=== PATIENT | male | born 2000 | race Caucasian/White ===

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

== ENCOUNTER 2019-02-24 10:01 | Emergency (ER) | payer OTHER ==
--- NOTE | 2019-02-24 10:56 | ER Document Report ---
ED Medical Screen (RME) - General Chief Complaint: Abdominal Pain Stated Complaint: ABDOMINAL PAIN Time Seen by Provider: 02/24/19 10:52 Notes: Patient is otherwise healthy 18-year-old male presents to the emergency department with left upper abdominal pain for the last 3 days. Patient states when he applies pressure in his left upper abdomen the pain feels worse. Patient's denying any right lower quadrant pain, right upper quadrant pain. Patient's denying any nausea, vomiting, diarrhea, fever. GENERAL: Alert, interacts well. No acute distress. ABDOMEN: Soft, generalized left upper quadrant pain. Non-distended. Bowel sounds present in all 4 quadrants. No McBurney's point tenderness, no Sesay sign noted I have greeted and performed a rapid initial assessment of this patient. A comprehensive ED assessment and evaluation of the patient, analysis of test results and completion of the medical decision making process will be conducted by additional ED providers. TRAVEL OUTSIDE OF THE [place] 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, Hx Pneumonia - About 5 years ago Denies: Hx Bronchitis, Hx COPD Neurological Medical History: Denies: Hx Cerebrovascular Accident, Hx Seizures Renal/ Medical History: Denies: Hx Peritoneal Dialysis Musculoskeltal Medical History: Denies Hx Arthritis Psychiatric Medical History: Reports: Hx Attention Deficit Hyperactivity Disorder Traumatic Medical History: Reports: Hx Fractures - Right great toe - Immunizations Immunizations up to date: Yes Hx Diphtheria, Pertussis, Tetanus Vaccination: Yes Physical Exam - Vital signs Vitals: Temp Pulse Resp BP Pulse Ox 97.5 F 56 L 16 114/72 100 02/24/19 10:05 02/24/19 10:05 02/24/19 10:05 02/24/19 10:05 02/24/19 10:05 Course - Vital Signs Vital signs: Temp Pulse Resp BP Pulse Ox 97.5 F 56 L 16 114/72 100 02/24/19 10:05 02/24/19 10:05 02/24/19 10:05 02/24/19 10:05 02/24/19 10:05
[2019-02-24 11:53] LABS: ABSOLUTE EOSINOPHILS # (AUTO) 0.7 10^3/uL (0.0-0.6); ABSOLUTE LYMPHOCYTES (AUTO) 3.1 10^3/uL (0.5-4.7); ABSOLUTE MONOCYTES (AUTO) 0.9 10^3/uL (0.1-1.4); ABSOLUTE NEUT (AUTO) 4.2 10^3/uL (1.7-8.2); BASOPHILS % (AUTO) 0.4 % (0-2); EOSINOPHILS % (AUTO) 7.4 % (0-6); HEMOGLOBIN 14.7 g/dL (13.5-17.0); LYMPHOCYTES % (AUTO) 35.2 % (13-45); MEAN CORPUSCULAR HEMOGLOBIN 30.3 pg (27.0-33.4); MEAN CORPUSCULAR VOLUME 87 fl (80-97); MONOCYTES % (AUTO) 9.6 % (3-13); PLATELET COUNT 259 10^3/uL (150-450); RED BLOOD COUNT 4.85 10^6/uL (4.35-5.55); RED CELL DISTRIBUTION WIDTH 13.1 % (11.5-14.0); SEGMENTED NEUTROPHILS % (AUTO) 47.4 % (42-78); TOTAL CELLS COUNTED % (AUTO) 100 %; WHITE BLOOD COUNT 8.9 10^3/uL (4.0-10.5)
[2019-02-24 12:19] LABS: APPEARANCE,URINE CLEAR; BILIRUBIN,URINE NEGATIVE (NEGATIVE); COLOR,URINE STRAW; GLUCOSE, URINE NEGATIVE (NEGATIVE); KETONES,URINE NEGATIVE (NEGATIVE); LEUKOCYTE ESTERASE,URINE NEGATIVE (NEGATIVE); NITRITE,URINE NEGATIVE (NEGATIVE); PROTEIN,URINE NEGATIVE (NEGATIVE); URINE SPECIFIC GRAVITY 1.005; UROBILINOGEN,URINE NEGATIVE mg/dL (<2.0)
[2019-02-24 12:30] LABS: ALANINE AMINOTRANSFERASE 27 U/L (10-40); ALBUMIN 4.9 g/dL (3.7-5.6); ALKALINE PHOSPHATASE 74 U/L (65-260); ANION GAP 10 (5-19); ASPARTATE AMINO TRANSFERASE 18 U/L (10-45); BILIRUBIN,DIRECT 0.2 mg/dL (0.0-0.4); BILIRUBIN,TOTAL 0.6 mg/dL (0.2-1.3); BLOOD UREA NITROGEN 10 mg/dL (7-20); CALCIUM 10.3 mg/dL (8.4-10.2); CARBON DIOXIDE 27 mmol/L (22-30); CHLORIDE 102 mmol/L (98-107); GLUCOSE 95 mg/dL (75-110); LIPASE 96.4 U/L (23-300); POTASSIUM 4.8 mmol/L (3.6-5.0); SODIUM 138.7 mmol/L (137-145); TOTAL PROTEIN 8.1 g/dL (6.3-8.2)
--- NOTE | 2019-02-24 14:16 | ER Document Report ---
ED General - General Chief Complaint: Abdominal Pain Stated Complaint: ABDOMINAL PAIN Time Seen by Provider: 02/24/19 10:52 Mode of Arrival: Ambulatory Information source: Patient TRAVEL OUTSIDE OF THE [place] IN LAST 30 DAYS: No - HPI Patient complains to provider of: Left upper quadrant abdominal pain Onset: Other - Past 3 days Onset/Duration: Gradual, Persistent, Waxing and waning Quality of pain: Burning Severity: Moderate Pain Level: 3 Associated symptoms: None Exacerbated by: Denies Similar symptoms previously: No Recently seen / treated by doctor: No Notes: 18-year-old male with history of acid reflux disease not currently on any medication having left upper quadrant pain waxing and waning for the past 3 days. Belching and the odor of the belches is like sulfur. No fevers or chi lls. No nausea vomiting or diarrhea. Used to be taking Dexilant for GERD but does not take anything because of the cost. 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 No chills. EENT: No eye redness. No eye pain. No ear pain. No sore throat. Cardiovascular: No chest pain. No palpitations. Respiratory: No cough. No shortness of breath. No respiratory distress. Gastrointestinal: Positive abdominal pain. No nausea, vomiting, or diarrhea. Genitourinary: Atraumatic. No lesions. No pain. No discharge. Musculoskeletal: Atraumatic. No swelling. No deformities. Skin: No rash or lesions. Lymphatic: No swollen lymph nodes. Neurologic: No headache. No syncope. Psychiatric: No suicidal or homicidal ideation. Physical Exam - Vital signs Vitals: Temp Pulse Resp BP Pulse Ox 97.5 F 56 L 16 114/72 100 02/24/19 10:05 02/24/19 10:05 02/24/19 10:05 02/24/19 10:05 02/24/19 10:05 - Notes Notes: General: Well-developed, well-nourished. In no acute distress. Non-toxic appearing. Cardiac: Well-perfused. Regular rate and rhythm. No murmurs, rubs, or gallops. Pulmonary: No respiratory distress. No cyanosis. Bilateral lung fiels are clear to auscultation. Abdominal: Mild left upper quadrant tenderness to palpation. Bowel sounds present all 4 quadrants. No guarding or rebound. HEENT: Head is atraumatic. Conjunctivae not reddened. No tearing. PERRL. EOMI. Orbits atraumatic. No periorbital swelling or erythema. Oropharynx is without erythema, swelling, or exudates. Neck: Supple. No adenopathy. No meningismus. Dermatologic: Warm with good turgor. No rash. Atraumatic. Chest: Atraumatic. No chest wall tenderness to palpation. Musculoskeletal: Moves all extremities well. No range of motion deficits. no muscular or joint tenderness. No paraspinal muscle tenderness. no midline spinal tenderness or step-off. Genitourinary: Examination deferred Neurologic: No gross neurologic deficits. Psychiatric: Normal mood. Course - Re-evaluation Re-evalutation: 02/24/19 14:13 Labs look good. Will treat for gastritis. We will start him on Protonix as he is never tried this before. - Vital Signs Vital signs: Temp Pulse Resp BP Pulse Ox 97.5 F 56 L 16 114/72 100 02/24/19 10:05 02/24/19 10:05 02/24/19 10:05 02/24/19 10:05 02/24/19 10:05 - Laboratory Result Diagrams: 02/24/19 11:04 02/24/19 11:04 Laboratory results interpreted by me: 02/24/19 02/24/19 11:04 11:04 Eosinophils % 7.4 H Absolute Eosinophils 0.7 H Calcium 10.3 H Discharge - Discharge Clinical Impression: Acute gastritis Qualifiers: Gastritis type: unspecified gastritis Gastritis bleeding: without bleeding Qualified Code(s): K29.00 - Acute gastritis without bleeding Condition: Good Disposition: HOME, SELF-CARE Instructions: Gastritis ([facility]) Additional Instructions: Take all medications as directed. Please follow-up with your primary care provider in the next 3 to 5 days. Prescriptions: Pantoprazole Sodium [Protonix] 20 mg PO DAILY 30 Days #30 tablet. Ranitidine HCl [Zantac] 150 mg PO BID 10 Days #20 tablet Sucralfate [Carafate 1 gm Tablet] 1 gm PO QID 10 Days #40 tablet Referrals: [facility] [Provider Group] - Follow up as needed
[2019-02-24 14:41] VITALS: BP 124/72
== END 2019-02-24 14:40 | disposition home or self-care (01) ==
LOC: ER 10:01
DX: K29.00 Acute gastritis without bleeding (principal); R10.12 Left upper quadrant pain; R14.2 Eructation; J45.909 Unspecified asthma, uncomplicated; F17.200 Nicotine dependence, unspecified, uncomplicated; Z87.19 Personal history of other diseases of the digestive system; Z88.0 Allergy status to penicillin
CPT/HCPCS: 36415; 80053; 81001; 83690; 85025; 99284

== ENCOUNTER 2019-05-18 18:42 | Emergency (ER) | payer OTHER ==
[2019-05-18 18:48] VITALS: BP 128/77
== END 2019-05-18 18:47 | disposition left against medical advice (07) ==
LOC: ER 18:42
DX: Z53.21 Procedure and treatment not carried out due to patient leaving prior to being seen by health care provider (principal)

== ENCOUNTER 2019-05-19 03:03 | Emergency (ER) | payer OTHER ==
[2019-05-19 06:24] LABS: APPEARANCE,URINE SLIGHTLY-CLOUDY; BILIRUBIN,URINE NEGATIVE (NEGATIVE); COLOR,URINE AMBER; GLUCOSE, URINE NEGATIVE (NEGATIVE); KETONES,URINE 20 mg/dL (NEGATIVE); LEUKOCYTE ESTERASE,URINE NEGATIVE (NEGATIVE); NITRITE,URINE NEGATIVE (NEGATIVE); PROTEIN,URINE 100 mg/dL (NEGATIVE); URINE SPECIFIC GRAVITY 1.033; UROBILINOGEN,URINE NEGATIVE mg/dL (<2.0)
[2019-05-19 06:30] LABS: ALANINE AMINOTRANSFERASE 25 U/L (10-40); ALBUMIN 5.3 g/dL (3.7-5.6); ALKALINE PHOSPHATASE 87 U/L (65-260); ANION GAP 15 (5-19); ASPARTATE AMINO TRANSFERASE 23 U/L (10-45); BILIRUBIN,DIRECT 0.3 mg/dL (0.0-0.4); BLOOD UREA NITROGEN 13 mg/dL (7-20); CALCIUM 10.5 mg/dL (8.4-10.2); CARBON DIOXIDE 28 mmol/L (22-30); CHLORIDE 98 mmol/L (98-107); GLUCOSE 110 mg/dL (75-110); SODIUM 140.6 mmol/L (137-145); TOTAL PROTEIN 8.7 g/dL (6.3-8.2)
[2019-05-19 06:40] LABS: HEMOGLOBIN 16.3 g/dL (13.5-17.0); MEAN CORPUSCULAR HEMOGLOBIN 30.1 pg (27.0-33.4); MEAN CORPUSCULAR HGB CONC 35.4 g/dL (32.0-36.0); MEAN CORPUSCULAR VOLUME 85 fl (80-97); PLATELET COUNT 219 10^3/uL (150-450); RED CELL DISTRIBUTION WIDTH 13.1 % (11.5-14.0); WHITE BLOOD COUNT 8.9 10^3/uL (4.0-10.5)
[2019-05-19] MEDS ORDERED: ONDANSETRON 4 MG TAB.RAPDIS PO ONE (06:54)
--- NOTE | 2019-05-19 07:02 | ER Document Report ---
Addendum entered and electronically signed by GRETCHEN BORJA PA-C 05/19/19 08:54: Discharge - Discharge Clinical Impression: Vomiting and diarrhea Condition: Good Disposition: HOME, SELF-CARE Additional Instructions: You have been seen in the Emergency Department (ED) today for nausea and vomiting. Your work up today has not shown a clear cause for your symptoms. You can use Zofran for the nausea if that will help and please get the prescription filled at the urgent care put in for you. Follow up with your doctor as soon as possible regarding today's emergent visit and your symptoms of nausea. Return to the Emergency Department (ED) if you develop abdominal pain, bloody vomiting, bloody diarrhea, if you are unable to tolerate fluids due to vomiting, or if you develop other symptoms that concern you. Prescriptions: Ondansetron [Zofran Odt 4 mg Tablet] 1 tab PO Q8 #12 tab.rapdis Forms: Return to Work Provider Note Provider Note: charge nurse asked me to write the dc script for the missing zofran that it appeared from the pts chart he was supposed to be dc'd with but it was accidentally not printed. so i did write for zofran 4mg odt q8 prn nausea #12 no refills. this was my only involvement in pt care. Original Note: HPI - HPI Patient complains to provider of: vomiting Time Seen by Provider: 05/19/19 06:53 Pain Level: 5 Context: Healthy 18-year-old male presents the emergency department with chief complaint of vomiting and diarrhea x24 hours. He was seen at an urgent care yesterday, given a shot of Phenergan, and a prescription which he did not get filled and said he was feeling better. At 230 this morning he woke up with diarrhea and vomiting and has been going about every hour since. He denies any fevers, blood in his vomit or blood in his diarrhea, denies any sick contacts, denies any changes in his diet, denies any dizziness/lightheadedness/weakness, no other complaints. 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, Hx Pneumonia - About 5 years ago Denies: Hx Bronchitis, Hx COPD Neurological Medical History: Denies: Hx Cerebrovascular Accident, Hx Seizures Renal/ Medical History: Denies: Hx Peritoneal Dialysis Musculoskeletal Medical History: Denies Hx Arthritis Psychiatric Medical History: Reports: Hx Attention Deficit Hyperactivity Dis order Traumatic Medical History: Reports: Hx Fractures - Right great toe - Immunizations Immunizations up to date: Yes Hx Diphtheria, Pertussis, Tetanus Vaccination: Yes Vertical Provider Document - CONSTITUTIONAL Notes: PHYSICAL EXAMINATION: Reviewed vital signs and charting by RN GENERAL: Alert, interacts well. No acute distress. HEAD: Normocephalic, atraumatic. EYES: Pupils equal and round. Extraocular movements intact. ENT: Oral mucosa moist, tongue midline. NECK: Full range of motion. Trachea midline. LUNGS: Clear to auscultation bilaterally, no wheezes, rales, or rhonchi. No respiratory distress. HEART: Regular rate and rhythm. No murmur ABDOMEN: soft, non-tender. No distention. Bowel sounds present EXTREMITIES: Moves all 4 extremities spontaneously. No edema, No cyanosis. PSYCH: Normal affect, normal mood. SKIN: Warm, dry, normal turgor. No rashes or lesions noted. - INFECTION CONTROL TRAVEL OUTSIDE OF THE [place] IN LAST 30 DAYS: No Course - Re-evaluation Re-evalutation: 05/19/19 07:49 Overall well-appearing. Basic lab work was obtained and patient shows no evidence of dehydration on labs and shows no evidence of clinical dehydration. Moist mucous membranes. Patient's last episode of diarrhea was approximately 3:00 in the morning. I discussed with patient that IV fluids are not medically indicated at this time. I gave him another dose of Zofran and some loperamide. I gave him instructions for a soft bland diet and to slowly sip drinks. Patient is not tachycardic and vital signs are within normal limits. He is stable for discharge. - Vital Signs Vital signs: Temp Pulse Resp BP Pulse Ox 98.3 F 96 H 16 129/78 H 97 05/19/19 03:12 05/19/19 03:12 05/19/19 03:12 05/19/19 03:12 05/19/19 03:12 - Laboratory Result Diagrams: 05/19/19 06:00 05/19/19 06:00 Laboratory results interpreted by me: 05/19/19 05/19/19 06:00 06:00 Calcium 10.5 H Total Protein 8.7 H Urine Protein 100 H Urine Ketones 20 H Discharge - Discharge Clinical Impression: Vomiting and diarrhea Condition: Good Disposition: HOME, SELF-CARE Additional Instructions: You have been seen in the Emergency Department (ED) today for nausea and vomiting. Your work up today has not shown a clear cause for your symptoms. You can use Zofran for the nausea if that will help and please get the prescription filled at the urgent care put in for you. Follow up with your doctor as soon as possible regarding today's emergent visit and your symptoms of nausea. Return to the Emergency Department (ED) if you develop abdominal pain, bloody vomiting, bloody diarrhea, if you are unable to tolerate fluids due to vomiting, or if you develop other symptoms that concern you. Forms: Return to Work
[2019-05-19] MEDS ORDERED: LOPERAMIDE HCL 2 MG CAPSULE PO ONE (07:08)
[2019-05-19 07:24] LABS: ABSOLUTE LYMPHOCYTES# (MANUAL) 1.3 10^3/uL (0.5-4.7); ABSOLUTE MONOCYTES # (MANUAL) 1.1 10^3/uL (0.1-1.4); BASOPHILS % (MANUAL) 0 % (0-2); EOSINOPHILS % (MANUAL) 1 % (0-6); LYMPHOCYTES % (MANUAL) 15 % (13-45); MONOCYTES % (MANUAL) 12 % (3-13); SEGMENTED NEUTROPHILS % (MAN) 72 % (42-78); TOTAL CELLS COUNTED 100
[2019-05-19 07:25] LABS: PLATELET COMMENT ADEQUATE; RBC MORPHOLOGY COMMENT NORMO-CYTIC/CHROMIC; TOXIC GRANULATION 1+
[2019-05-19 08:49] VITALS: BP 103/51
== END 2019-05-19 08:50 | disposition home or self-care (01) ==
LOC: ER 03:03
DX: R11.10 Vomiting, unspecified (principal); R19.7 Diarrhea, unspecified; F17.200 Nicotine dependence, unspecified, uncomplicated; J45.909 Unspecified asthma, uncomplicated
CPT/HCPCS: 99284; 36415; 85025; 80053; 81001; S0119

== ENCOUNTER → 2019-08-11 | Outpatient (CLI) | payer OTHER ==
[2019-08-11 08:51] LABS: ALBUMIN 5.1 g/dL (3.7-5.6); ALKALINE PHOSPHATASE 72 U/L (65-260); ASPARTATE AMINO TRANSFERASE 30 U/L (10-45); CARBON DIOXIDE 30 mmol/L (22-30); CHLORIDE 100 mmol/L (98-107); GLUCOSE 100 mg/dL (75-110)
[2019-08-11 08:52] LABS: ABSOLUTE EOSINOPHILS # (AUTO) 0.5 10^3/uL (0.0-0.6); ABSOLUTE LYMPHOCYTES (AUTO) 2.3 10^3/uL (0.5-4.7); ABSOLUTE MONOCYTES (AUTO) 0.9 10^3/uL (0.1-1.4); ABSOLUTE NEUT (AUTO) 4.2 10^3/uL (1.7-8.2); BASOPHILS % (AUTO) 0.5 % (0-2); EOSINOPHILS % (AUTO) 6.2 % (0-6); HEMATOCRIT 42.7 % (37.9-51.0); LYMPHOCYTES % (AUTO) 29.2 % (13-45); MEAN CORPUSCULAR HEMOGLOBIN 30.1 pg (27.0-33.4); MEAN CORPUSCULAR HGB CONC 35.1 g/dL (32.0-36.0); MEAN CORPUSCULAR VOLUME 86 fl (80-97); MONOCYTES % (AUTO) 11.1 % (3-13); PLATELET COUNT 260 10^3/uL (150-450); RED BLOOD COUNT 4.97 10^6/uL (4.35-5.55); RED CELL DISTRIBUTION WIDTH 12.9 % (11.5-14.0); TOTAL CELLS COUNTED % (AUTO) 100 %; WHITE BLOOD COUNT 7.9 10^3/uL (4.0-10.5)
[2019-08-11 09:02] LABS: DIRECT LDL 76 mg/dL (<100)
[2019-08-11 09:07] LABS: ANION GAP 8 (5-19); BILIRUBIN,DIRECT 0.1 mg/dL (0.0-0.4); BILIRUBIN,TOTAL 1.3 mg/dL (0.2-1.3); BLOOD UREA NITROGEN 16 mg/dL (7-20); CALCIUM 10.5 mg/dL (8.4-10.2); CHOLESTEROL 145.13 mg/dL (0-200); POTASSIUM 4.5 mmol/L (3.6-5.0); TOTAL PROTEIN 8.4 g/dL (6.3-8.2); TRIGLYCERIDES 69 mg/dL (<150)
== END ==
LOC: OD 07:03
PROVIDERS: ATTEND Family Medicine Geriatric Medicine
DX: K21.0 Gastro-esophageal reflux disease with esophagitis (principal); E66.3 Overweight
CPT/HCPCS: 36415; 80053; 80061; 84443; 85025